=== PATIENT | female | born 1960 | race Caucasian/White ===

== ENCOUNTER 2018-07-29 11:24 | Emergency (ER) | payer OTHER ==
[2018-07-29] MEDS ORDERED: NS 1,000 ML IV ONE (11:38)
[2018-07-29] MEDS ORDERED: HYDROmorphONE/DILAUDID 2 MG/ML INJ IVP ONE (11:38)
[2018-07-29] MEDS ORDERED: ONDANSETRON 4 MG/2 ML VIAL IVP ONE (11:38)
--- NOTE | 2018-07-29 11:40 | EDPHY ---
H & P Time Seen by Provider: 07/29/18 11:34 HPI/ROS: CHIEF COMPLAINT: Right flank pain HISTORY OF PRESENT ILLNESS: Patient is a 57-year-old female who comes to the emergency department complaining of right lower quadrant and right flank pain that began abruptly about an hour ago. She has not had to pee since it began. No fever. No nausea vomiting. No diarrhea. No history of abdominal surgery. Never had symptoms like this before. No rash. No risk of . No vaginal bleeding or discharge. Severity: Moderate Modifying factors: None REVIEW OF SYSTEMS: Constitutional: denies: chills, fever, recent illness, recent injury EENTM: denies: blurred vision, double vision, nose congestion Respiratory: denies: cough, shortness of breath Cardiac: denies: chest pain, irregular heart rate, lightheadedness, palpitations Gastrointestinal/Abdominal: See HPI Genitourinary: denies: dysuria, frequency, hematuria, pain Musculoskeletal: denies: joint pain, muscle pain Skin: denies: lesions, rash, jaundice, bruising Neurological: denies: headache, numbness, paresthesia, tingling, dizziness, weakness Hematologic/Lymphatic: denies: blood clots, easy bleeding, easy bruising Immunologic/allergic: denies: HIV/AIDS, transplant 10 systems reviewed and negative except as noted EXAM: GENERAL: Well-appearing, well-nourished and in no acute distress. HEAD: Atraumatic, normocephalic. EYES: Pupils equal round and reactive to light, extraocular movements intact, sclera anicteric, conjunctiva are normal. ENT: TMs normal, nares patent, oropharynx clear without exudates. Moist mucous membranes. NECK: Normal range of motion, supple without lymphadenopathy or JVD. LUNGS: Breath sounds clear to auscultation bilaterally and equal. No wheezes rales or rhonchi. HEART: Regular rate and rhythm without murmurs, rubs or gallops. ABDOMEN: Tender right lower quadrant. Radiates to her back. No guarding or rebound BACK: No CVA tenderness, no spinal tenderness, step-offs or deformities EXTREMITIES: Normal range of motion, no pitting or edema. No clubbing or cyanosis. NEUROLOGICAL: Cranial nerves II through XII grossly intact. Normal speech, normal gait. 5/5 strength, normal movement in all extremities, normal sensation , normal reflexes PSYCH: Normal mood, normal affect. SKIN: Warm, dry, normal turgor, no visible rashes or lesions. Source: Patient Exam Limitations: No limitations - Personal History Current Tetanus/Diphtheria Vaccine: Yes Tetanus Vaccine Date: 3 years ago - Medical/Surgical History Hx Asthma: No Hx Chronic Respiratory Disease: No Hx Diabetes: No Hx Cardiac Disease: No Hx Renal Disease: No Hx Cirrhosis: No Hx Alcoholism: No Hx HIV/AIDS: No Hx Splenectomy or Spleen Trauma: No Other PMH: none reported - Family History Significant Family History: No pertinent family hx - Social History Smoking Status: Never smoked Alcohol Use: None Constitutional: Initial Vital Signs Temperature (C) 36.6 C 07/29/18 11:44 Heart Rate 63 07/29/18 11:44 Respiratory Rate 18 07/29/18 11:44 Blood Pressure 206/108 H 07/29/18 11:44 O2 Sat (%) 100 07/29/18 11:44 O2 Delivery Mode Room Air Allergies/Adverse Reactions: iodine Allergy (Verified 07/29/18 11:46) Penicillins Allergy (Verified 07/29/18 11:46) Home Medications: Medication Instructions Recorded NK [No Known Home Meds] 10/03/15 Medical Decision Making - Diagnostics EKG Interpretation: An EKG obtained and was read and documented in trace view. Please see trace view for full reading and report. Sinus rhythm, no peaked T-waves Imaging Results: Imaging Impressions Abdomen/Pelvis CT 07/29/18 12:11 Impression: Findings suggesting that the patient may have just passed a tiny distal right ureteral calculus. Results discussed with Dr. Alvarado at 1:06 PM. General information for patients regarding this examination can be found at [email or web address]. If you have questions or comments about this report, please contact me at (hospital) or [phone] (cell). Imaging: Discussed imaging studies w/ call or contact centre manager Radiologist ED Course/Re-evaluation: Patient has hematuria. She clinically is consistent with kidney stone. Will order CT scan to evaluate further. Patient's potassium is low. Will obtain EKG and repeat I-STAT. 1:15 p.m. the patient is feeling completely better. We discussed her CT results. It appears that she passed a stone. No sign of appendicitis. We discussed urine straining and follow up with Urology. Differential Diagnosis: Partial list of the Differential diagnosis considered include but were not limited to; urinary tract infection, kidney stone, appendicitis and although unlikely based on the history and physical exam, I also considered ovarian cyst , ovarian torsion. I discussed these differential diagnoses and the plan with the patient as well as the usual and expected course. The patient understands that the diagnosis is provisional and that in medicine we are not always correct and that further workup is often warranted. Usual and customary warnings were given. All of the patient's questions were answered. The patient was instructed to return to the emergency department should the symptoms at all worsen or return, otherwise to followup with the physician as we discussed. - Data Points Laboratory Results: 07/29/18 07/29/18 12:50 12:03 POC Sodium 141 mEq/L mEq/L (135-145) POC Potassium 3.4 mEq/L mEq/L 2.6 mEq/L L* mEq/L (3.3-5.0) (3.3-5.0) POC Chloride 106.0 mEq/L mEq/L (97-110) POC Total CO2 23 mEq/L mEq/L (22-31) POC BUN 9 mg/dL mg/dL (7-23) POC Creatinine 0.9 mg/dL mg/dL (0.6-1.0) POC Glucose 138 mg/dL H mg/dL (70-100) POC Calcium 9.7 mg/dL mg/dL (8.5-10.4) POC Total Bilirubin 0.7 mg/dL mg/dL (0.1-1.4) POC AST 27 IU/L IU/L (14-46) POC ALT 12 IU/L IU/L (9-52) POC Alk Phosphatase 99 IU/L IU/L (38-126) POC Total Protein 7.5 g/dL g/dL (6.3-8.2) POC Albumin 4.3 g/dL g/dL (3.5-5.0) Medications Given: Discontinued Medications Hydromorphone HCl (Dilaudid) 1 mg IVP EDNOW ONE Stop: 07/29/18 11:39 Last Admin: 07/29/18 11:56 Dose: 0.5 mg Sodium Chloride (Ns) 1,000 mls @ 0 mls/hr IV EDNOW ONE; Wide Open PRN Reason: Protocol Stop: 07/29/18 11:39 Last Admin: 07/29/18 12:00 Dose: 1,000 mls Ondansetron HCl (Zofran) 4 mg IVP EDNOW ONE Stop: 07/29/18 11:39 Last Admin: 07/29/18 12:55 Dose: Not Given Point of Care Test Results: CBC CBC Collection Date 07/29/18 CBC Collection Time 12:05 WBC 6.25 RBC 5.46 HGB 16.0 HCT 45.5 PLT 281 Neut # 3.62 Neut 57.8 LYMPH # 2.07 LYMPH 33.1 MCV 83.3 Chemistry 07/29/18 07/29/18 12:50 12:03 POC Sodium 141 mEq/L mEq/L (135-145) POC Potassium 3.4 mEq/L mEq/L 2.6 mEq/L L* mEq/L (3.3-5.0) (3.3-5.0) POC Chloride 106.0 mEq/L mEq/L (97-110) POC Total CO2 23 mEq/L mEq/L (22-31) POC BUN 9 mg/dL mg/dL (7-23) POC Creatinine 0.9 mg/dL mg/dL (0.6-1.0) POC Glucose 138 mg/dL H mg/dL (70-100) POC Calcium 9.7 mg/dL mg/dL (8.5-10.4) POC Total Bilirubin 0.7 mg/dL mg/dL (0.1-1.4) POC AST 27 IU/L IU/L (14-46) POC ALT 12 IU/L IU/L (9-52) POC Alk Phosphatase 99 IU/L IU/L (38-126) POC Total Protein 7.5 g/dL g/dL (6.3-8.2) POC Albumin 4.3 g/dL g/dL (3.5-5.0) Urine Dip Collection Date 07/29/18 Collection Time 11:55 Specific [place] (1.002-1.030) 1.030 PH (5.0-7.5) 5.5 Leukocytes (Negative) Negative Nitrites (Negative) Negative Protein (Negative) Negative Glucose (Negative) Negative Ketones (Negative) Negative Urobilnogen (0.2-1.0 EU) 0.2 Bilirubin (Negative) Negative Blood (Negative) 2+ Departure - Departure Disposition: Home, Routine, Self-Care Clinical Impression: Calculus of right kidney Condition: Fair Instructions: Kidney Stones (ED) Additional Instructions: Strain urine and take the stone to the urologist for analysis Referrals: Taylor Powell MD [Primary Care Provider] - As per Instructions Abraham Davey MD [Medical Doctor] - 5-7 days, call for appt.
--- NOTE | 2018-07-29 13:06 | CPEKG ---
Test Reason : OPEN Blood Pressure : / mmHG Vent. Rate : 055 BPM Atrial Rate : 000 BPM P-R Int : 123 ms QRS Dur : 103 ms QT Int : 507 ms P-R-T Axes : 066 038 040 degrees QTc Int : 485 ms Sinus rhythm Ventricular premature complex Borderline T abnormalities, anterior leads Confirmed by Nabeel Sterling ([id number]) on 07/29/2018 1:06:15 PM Referred By: NABEEL STERLING Confirmed By:Nabeel Sterling
[2018-07-29 17:39] VITALS: BP 132/92
== END 2018-07-29 13:25 | disposition home or self-care (01) ==
LOC: CED 11:24
DX: N20.1 Calculus of ureter (principal); E86.9 Volume depletion, unspecified
CPT/HCPCS: 74176-PO; 80053-ER; 84132-PO; 96361-ER; 96374-ER; J1170